=== PATIENT | female | born 1985 | race Caucasian/White ===

== ENCOUNTER 2024-06-24 15:03 | Outpatient (AMB) | payer BC, SELFPAY ==
--- NOTE | 2024-06-24 15:18 | A.OFFVIS_ITS ---
Vital Signs 06/24/24 15:19 Height 5 ft 4 in Weight 147 lb 6 oz BMI 25.3 BP 160/40 H Blood Pressure Location Rt brachial Position Sitting Pulse 104 H Pulse Source Pulse Oximeter Pulse Oximetry (%) 99 Intake Visit Reasons: ENP-Migraine - LVM Intake Note: Patient presents for migraines. Patient gets 3-4 in a month Allergies No Known Allergies Allergy (Verified 06/24/24 15:21) Medication List - Last Reconciled 06/24/24 by MARILY Mayo norethindrone acetate 5 mg PO DAILY sumatriptan succinate mg PO HPI Comments Details: Right-handed 38-yr-old female presents for new pt evaluation of headache disorder. Pt reports she has had migraine since childhood w/o precipitating cause. She saw neurology as a child/adolescent but has not seen neurology since age 15. Over time her migraine has changed- as a child had frontal migraine a/w nausea. However now she has more autonomic s/s a/w her migraine. She wondered if she could now have cluster headache but was not sure. PMH and ROS are notable for:? Musculoskeletal disorders or injury: Back pain- feels she does not sit correctly. Leg cramps- at rest, at night, but also w/ activity if she bends her foot the wrong way, but not w/ walking. CV disease: HTN. Her feet sometimes turns bright red or burn. Her arms and feet are also purple or numb/tingling if sitting or leaning on her arm- has BLE US which was normal. Denies distal extremity or fingers/toes turning white. GI d/o: frequent air bubbling sensation in LUQ- sounds like she is hungry- saw GI, who advised her to try Pepcid- pt has not had f/u yet. Constipation. 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 Family planning: no current plans. Has a 7 yo child. Family history of migraine or other headache disorder: mother had migraine Pertinent denials include: History of concussion/head injury, Mood d/o, Sleep d/o, Respiratory d/o, Clotting or hematology d/o, Endocrine d/o, metabolic d/o, History of seizure, syncope, or drop attacks Lifestyle considerations: Sleep routine: Usual bedtime: 10-12pm and wake-up time: 6-6:45am Sleep difficulties: Endorses: Snoring, Fatigue, Restlessness at times, Leg Cramps. 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 Headache questionnaire:? Previous work-up: Brain MRI w/o, 2023, 2mm Mild right cerebellar tonsillar ectopia. Minor R>L chronic sinusitis. Otherwise, unremarkable exam. Typical headache characteristics: Prodrome symptoms: yawning, fatigue Aura: denies visual auras. Pain intensity: moderate-severe Location, quality, characteristics: Usually one sided either right of left sided more so a constant stabbing pain and a lower level throbbing/pressure pain that comes and goes, which starts frontal/orbital and can move back into the neck, and if headache lasts into second day, the headache and associated s/s will switch to contralateral side. Associated symptoms: ipsilateral eye swelling, palpable temporal vessels, red eye, watery eye, runny nose, photophobia, phonophobia, lightheadedness, fatigue, cognitive difficulties, activity intolerance. Postdrome: Sometimes goes away but when she wakes up, the headache comes back. Triggers: Unknown. Denies exertional triggers. Denies known seasonal/weather triggers- but maybe increased in the fall. Alcohol triggers a different headach e. Time of day: Can wake up with headache between 3-6am. Duration and Frequency: Can last a whole day, but can last 3 days. Can be months without headache or 5-9 migraine attack days per months. How does headache impact your life? has had to miss work. Current acute medication use/interventions: Sumatriptan 25mg- usually helps but not always. Current preventative medication use: None Non-pharmacological interventions: rest, sleep [facility] Medical History (Updated 06/24/24 @ 18:13 by MARILY Mayo) Anemia Migraine Pelvic pain Endometrioma HTN (hypertension) Overweight Surgical History H/O ovarian cystectomy H/O section Family History Mother Lung cancer Father Myocardial infarct Maternal Grandmother No problems noted. Social History Alcohol intake: current Patient Tobacco Use Status: Current everyday Tobacco user Physical Exam Vital Signs: Last Vital Signs Pulse 104 H 06/24/24 15:19 BP 160/40 H 06/24/24 15:19 Pulse Ox 99 06/24/24 15:19 BMI result Body Mass Index 25.3 Const Orientation/consciousness: patient oriented x3 Resp Effort & Inspection: normal respiratory effort and able to speak in complete sen tences Neuro Other: No palpable scalp tenderness. She notes a bump along right vertex of head- slightly raised bump appreciated Mallampati stage IV BLE slightly purplish w/o edema. General: patient oriented x3 Cranial nerves: Yes CN's II-XII intact bilaterally Cognition (Neuro): normal cognition Gait exam (Neuro): Normal gait present Motor exam (neuro): 5/5 motor strength present throughout Deep tendon reflexes (DTR's): Right triceps reflex intensity grade: 2+, Left triceps reflex intensity grade: 2+, Rt Biceps (C5, C6): 2+, Left biceps reflex intensity grade: 2+, Right brachioradialis reflex intensity grade: 2+, Left brachioradialis reflex intensity grade: 2+, Right patellar reflex intensity grade: 2+ and Left patellar reflex intensity grade: 2+ Coordination: [id number] test normal, tandem gait normal and Romberg test negative Pupils: Normal pupillary reactivity/response: bilateral Psych Appearance: grossly normal Mental Status: mental status grossly normal Speech and movement: Normal speech and movement present Affect: normal affect Attitude: cooperative Thought process: Normal thought process present Results Reviewed Results Reviewed: MRI OF BRAIN NO CONTRAST Exam Date: 01/30/2024 6:06 PM Ordering Diagnosis: Migraine without aura and without status migrainosus, not intractable ? MRI OF BRAIN NO CONTRAST ? MRI BRAIN WITHOUT CONTRAST ? HISTORY: Increasing migraines. ? COMPARISON: MRI brain 05/23/2016. ? Technique: MRI of the brain without contrast was performed utilizing the standard departmental protocol. ? FINDINGS: The ventricles and sulci are normal in size and symmetric. ? There is no acute intracranial hemorrhage or acute infarct. ? There is no mass effect or midline shift. ? The basal cisterns are patent. ? There is minor membrane thickening of the maxillary sinuses, right greater than left. There is opacification of a tiny right ethmoid air cell. The paranasal sinuses and mastoid air cells are otherwise clear. ? Pituitary gland is grossly unremarkable. Infundibulum is midline. ? The right cerebellar tonsil extends approximately 2 mm below the foramen magnum. ? IMPRESSION IMPRESSION: Mild right cerebellar tonsillar ectopia. Minor chronic sinusitis. Otherwise, unremarkable exam. ? ? ? Reading Radiologist: Assessment & Plan Assessment & Plan (1) Worsening headaches: Comment: ? secondary headache- posterior fossa or CV process, ? TAC- trigeminal autonomic cephalalgia- ? episodic PH, ? CH. ? migraine w/ autonomic s/s. ? exacerbated by possible sleep apnea Code(s): R51.9 - Headache, unspecified Category: Medical (2) Transient autonomic symptoms: Comment: a/w ipsilateral stabbing headache Code(s): R29.818 - Other symptoms and signs involving the nervous system Category: Medical (3) Snoring: Code(s): R06.83 - Snoring Category: Medical (4) Sleep difficulties: Code(s): G47.9 - Sleep disorder, unspecified Category: Medical (5) Fatigue: Code(s): R53.83 - Other fatigue Category: Medical Plan Pt advised to undergo: Brain MRI w/wo and Brain MRA to assess for secondary etiologies, specifically in posterior fossa region, of unilateral stabbing headaches a/w ipsilateral autonomic s/s/ of puffy/droopy, red, watery eyey, and nasal congestion/runny nose. Labs for common etiologies of headache, cramping, distal discoloration. HST to assess for sleep apnea Pt states will f/u w/ PCP r/t treating elevated BP. For overall headache management: * Optimize good self-care, including but not limited to maintaining a healthy diet, adequate fluid intake, adequate sleep, and engaging in regular physical activity. * Track headaches, especially after any treatment regimen changes. Migraine Thermodynamic Process Control is one of many headache tracking apps. * Specifically asked pt to track timing of stabbing component of ipsilateral headcahe vs time of pressure/throbbing headache to help distinguish between different headache sub-types. For headache prevention medication: Preventative medications should be taken routinely as prescribed for best effect, it may take several weeks for full effect to take effect. Continue OTC Magnesium 400-500mg qhs Start Indomethacin trial upon onset of next unilateral stabbing headache attack. Advised this will help w/ diagnosis as certain HAs are considered absolutely indomethacin responsive. Start 25mg po tid (taken w/ food) x's 1 month. Resume pepcid for GI prophylaxis. Monitor BP/labs. Previous migraine prevention medication trials: Amitriptyline 5-10mg: ineffective and caused drowsiness Migraine prevention medication contraindications: Would avoid Aimovig d/t pt's tendency for distal discoloration. For acute headache treatment: Discussed importance of taking acute medications at the first sign of headache, however stressed importance of avoiding acute medication overuse (especially with combined headache medications). Continue Sumatriptan, however will increase dose to 50-100mg at onset of headache, MR x's 1 (max 200mg per day). Ibuprofen or Excedrin prn- however hold once pt begins Indomethacin trial. Previous acute migraine medication trials: none other Acute migraine medication contraindications: None at this time Pt to follow-up in 2 months or sooner prn. Addendum- pt has been started on Losartan 25mg po qd for BP management. Orders: Orders Vitamin B12 and Folate 07/01/24 R25.2 - Cramp and spasm, R51.9 - Headache, unspecified, R29.818 - Other symptoms and signs involving the nervous system Erythrocyte Sedimentation Rate 07/01/24 R25.2 - Cramp and spasm, R51.9 - Headache, unspecified, R29.818 - Other symptoms and signs involving the nervous system Hemoglobin A1c 07/01/24 R25.2 - Cramp and spasm, R51.9 - Headache, unspecified, R29.818 - Other symptoms and signs involving the nervous system Vitamin D 25-OH (D2 and D3) 07/01/24 R25.2 - Cramp and spasm, R51.9 - Headache, unspecified, R29.818 - Other symptoms and signs involving the nervous system MR head/brain wo/w con 06/24/24 D64.9 - Anemia, unspecified, R51.9 - Headache, unspecified, H57.89 - Other specified disorders of eye and adnexa MR angio head wo con 06/24/24 D64.9 - Anemia, unspecified, R51.9 - Headache, unspecified, H57.89 - Other specified disorders of eye and adnexa Magnesium 07/01/24 R25.2 - Cramp and spasm, R51.9 - Headache, unspecified, R29.818 - Other symptoms and signs involving the nervous system SHAY Reflex Titer and Pattern 07/01/24 R25.2 - Cramp and spasm, R51.9 - Headache, unspecified, R29.818 - Other symptoms and signs involving the nervous system Rheumatoid Factor 07/01/24 R25.2 - Cramp and spasm, R51.9 - Headache, unspecified, R29.818 - Other symptoms and signs involving the nervous system TSH reflex Free T4 07/01/24 R25.2 - Cramp and spasm, R51.9 - Headache, unspecified, R29.818 - Other symptoms and signs involving the nervous system CRP High Sensitivity 07/01/24 R25.2 - Cramp and spasm, R51.9 - Headache, uns pecified, R29.818 - Other symptoms and signs involving the nervous system Complete Blood Count Auto Diff 07/01/24 R25.2 - Cramp and spasm, R51.9 - Headache, unspecified, R29.818 - Other symptoms and signs involving the nervous system Comprehensive Met. Panel 07/01/24 R25.2 - Cramp and spasm, R51.9 - Headache, unspecified, R29.818 - Other symptoms and signs involving the nervous system Ferritin 07/01/24 R25.2 - Cramp and spasm, R51.9 - Headache, unspecified, R29.818 - Other symptoms and signs involving the nervous system IRON PROFILE 07/01/24 R25.2 - Cramp and spasm, R51.9 - Headache, unspecified, R29.818 - Other symptoms and signs involving the nervous system RT home sleep study 06/24/24 R06.83 - Snoring, G47.9 - Sleep disorder, unspecified, R53.83 - Other fatigue Medications: New sumatriptan succinate 50 - 100 mg orally at onset of headache, may repeat in 2 hrs PRN; max 2 tabs per day or 4 tabs/week 12 tabs 6RF migraine headache 30 days indomethacin administer with food or milk 25 mg PO TID 90 caps 1RF 30 days Coding Level of Care Code New Pt Level 4 (97317) Diagnoses Worsening headaches R51.9 Transient autonomic symptoms R29.818 Snoring R06.83 Sleep difficulties G47.9 Fatigue R53.83
[2024-06-24 15:19] VITALS: BP 160/40; PULSE 104; O2SAT 99; BMI 25.3
== END 2024-06-24 16:42 | disposition home or self-care (01) ==
PROVIDERS: PCP Internal Medicine; Visit Provider Nurse Practitioner Family
DX: R51.9 Headache, unspecified (principal); R29.818 Other symptoms and signs involving the nervous system; R06.83 Snoring; G47.9 Sleep disorder, unspecified; R53.83 Other fatigue
CPT/HCPCS: 99204

== ENCOUNTER → 2024-06-24 15:03 | Outpatient (BNVA) | payer BC, SELFPAY | PROVIDERS: PCP Internal Medicine; Visit Provider Nurse Practitioner Family ==

== ENCOUNTER 2024-07-01 11:11 | Outpatient (REF) | payer BC, SELFPAY ==
[2024-07-01 18:02] LABS: MANUAL DIFF FLAG NO
[2024-07-01 18:15] LABS: Basophils Percent Auto 0.2 % (0-2); Eosinophils Percent Auto 0.5 % (0-4); Hematocrit 47.2 % (37.0-47.0); Hemoglobin 16.3 g/dl (12.0-16.0); Imm Gran Abs Auto 0.02 X10*3/uL (0.00-0.03); Imm Gran Pct Auto 0.4 % (0.0-0.4); Lymphocytes Absolute Auto 1.9 X10*3/uL (1.2-4.9); Lymphocytes Percent Auto 34.5 % (20-40); Mean Corpuscular HGB Conc 34.5 g/dl (31.0-35.0); Mean Corpuscular Volume 89.7 fL (80.0-98.0); Mean Platelet Volume 10.7 fL (9.4-12.3); Monocytes Absolute Auto 0.3 X10*3/uL (0.1-1.2); Monocytes Percent Auto 4.7 % (2-11); Neutrophils Absolute Auto 3.3 x10*3/uL (2.0-8.3); Neutrophils Percent Auto 59.7 % (45-73); Platelet Count 236 X10*3/uL (160-400); Red Blood Count 5.26 X10*6/uL (4.20-5.50); Red Cell Distribution Width 12.1 % (11.0-16.0); White Blood Count 5.6 X10*3/uL (4.8-10.8)
[2024-07-01 18:18] LABS: Estimated Average Glucose 91 mg/dL; Hemoglobin A1c % 4.8 % (<6.0)
[2024-07-01 18:34] LABS: Alanine Aminotransferase 14 U/L (0-31); Albumin Level 4.9 g/dL (3.5-5.0); Alkaline Phosphatase 63 U/L (39-117); Anion Gap 14 (12-20); Aspartate Amino Transferase 16 U/L (5-31); Bilirubin Total 1.1 mg/dL (0.0-1.0); Blood Urea Nitrogen 14 mg/dL (9-16); Calcium 9.5 mg/dL (8.4-10.2); Carbon Dioxide 21 mmol/L (22-29); Chloride 106 mmol/L (96-108); Estimated Glomerular Filt Rate > 60; Glucose Random 94 mg/dL (60-115); Iron 132 mcg/dL (30-160); Magnesium 2.3 mg/dL (1.6-2.6); Percent Iron Saturation 40 % (15-50); Potassium 3.8 mmol/L (3.3-5.1); Sodium 137 mmol/L (135-145); Total Iron Binding Capacity 329 mcg/dL (228-428); Total Protein 7.6 g/dL (6.5-8.0); Unsaturated Iron Binding 197 ug/dL
[2024-07-01 18:41] LABS: Rheumatoid Factor < 13.0 IU/mL (<15.0)
[2024-07-01 18:42] LABS: Ferritin 154 ng/mL (10-122); TSH reflex Free T4 4.14 uIU/mL (0.32-4.0)
[2024-07-01 19:06] LABS: Folate 8.6 ng/mL (> or = 4.0); Vitamin B12 244 pg/mL (200-900)
[2024-07-01 19:41] LABS: Erythrocyte Sedimentation Rate 2 MM/HR (0-20)
[2024-07-01 19:46] LABS: Free T4 (Free Thyroxine) 1.01 ng/dL (0.71-1.85)
[2024-07-06 15:07] LABS: Vitamin D 25-OH, D2 <4 ng/mL; Vitamin D 25-OH, D3 22 ng/mL; Vitamin D 25-OH, Total 22 ng/mL (30-100)
[2024-07-07 20:08] LABS: Anti Nuclear Antibody Screen NEGATIVE (NEGATIVE)
== END 2024-07-01 11:12 | disposition home or self-care (01) ==
LOC: HO.HKASLDS 11:11
PROVIDERS: Visit Provider Nurse Practitioner Family
DX: R25.2 Cramp and spasm (principal); R51.9 Headache, unspecified; R29.818 Other symptoms and signs involving the nervous system; Z13.1 Encounter for screening for diabetes mellitus
CPT/HCPCS: 36415; 80053; 82306; 82607; 82728; 82746; 83036; 83540; 83735; 84439; 84443; 85025; 85652; 86038; 86141; 86431

== ENCOUNTER → 2024-08-19 09:01 | Outpatient (REF) | payer BC, SELFPAY | LOC: HO.SL 09:01 | PROVIDERS: PCP Internal Medicine; Visit Provider Nurse Practitioner Family | DX: R06.83 Snoring (principal); G47.9 Sleep disorder, unspecified; R53.83 Other fatigue; G47.10 Hypersomnia, unspecified | CPT/HCPCS: 95806 ==

== ENCOUNTER → 2024-08-19 09:13 | Outpatient (BNV) | payer BC, SELFPAY | PROVIDERS: PCP Internal Medicine; Visit Provider Psychiatry & Neurology Neurology | DX: R06.83 Snoring (principal) | CPT/HCPCS: 95806 ==

== ENCOUNTER 2024-10-17 13:48 | Outpatient (REF) | payer BC, SELFPAY ==
--- NOTE | ~2024-10-17 | MR_ITS ---
EXAMINATION: MR BRAIN WITHOUT AND WITH CONTRAST MR ANGIOGRAPHY BRAIN WITHOUT CONTRAST CLINICAL INFORMATION: Anemia. Headache. COMPARISON: None available. TECHNIQUE: MRI of the brain was obtained using routine sequences without and following the administration of 6.5 mL of Gadavist intravenous contrast. MRI of the brain was obtained using routine sequences without contrast. 3D qwuh-px-kefvoc MR angiography was performed through the brain without the use of intravenous gadolinium. 3D postprocessing including acquisition of multiplanar MIP reformats are obtained at the technologist workstation and utilized for image interpretation. Stenoses are assessed in accordance with NASCET criteria unless otherwise indicated. FINDINGS: Brain MRI: No focal restricted diffusion is demonstrated to suggest acute or subacute cerebral ischemia. No evidence of acute or chronic hemorrhagic products on heme-sensitive imaging. Few nonspecific scattered foci of T2 FLAIR hyperintensity within the bifrontal lobes. No additional parenchymal signal abnormalities. The ventricles are normal in morphology and size. No abnormal mass effect. No midline shift. Normal appearance of the pituitary gland. The cerebellar tonsils are mildly low lying, positioned 0.3 cm below the foramen magnum. The CSF space of the foramen magnum is maintained. Normal arterial and venous vascular flow voids are present. No abnormal contrast enhancement. Normal, homogeneous marrow signal. Mild mucosal thickening of the paranasal sinuses. No signal abnormalities within the mastoids. Head MRA: Normal flow-related signal within the anterior circulation without evidence of focal stenosis or occlusion of the intradural internal carotid, middle cerebral, or anterior cerebral arteries. Normal flow-related signal within the posterior circulation without evidence of focal stenosis or occlusion of the intradural vertebral, basilar, superior cerebellar, or posterior cerebral arteries. No demonstrated intradural aneurysms. MR/MR head/brain wo/w con IMPRESSION: 1. No acute intracranial abnormalities. No abnormal intracranial enhancement. 2. Minimal nonspecific white matter changes. 3. Mild cerebellar tonsillar ectopia. 4. Normal MRA of the head. Electronically signed by: Tony Gonsalez DO 10/25/2024 02:20 PM [facility]
--- NOTE | ~2024-10-17 | MR_ITS ---
EXAMINATION: MR BRAIN WITHOUT AND WITH CONTRAST MR ANGIOGRAPHY BRAIN WITHOUT CONTRAST CLINICAL INFORMATION: Anemia. Headache. COMPARISON: None available. TECHNIQUE: MRI of the brain was obtained using routine sequences without and following the administration of 6.5 mL of Gadavist intravenous contrast. MRI of the brain was obtained using routine sequences without contrast. 3D aatl-nm-ducibl MR angiography was performed through the brain without the use of intravenous gadolinium. 3D postprocessing including acquisition of multiplanar MIP reformats are obtained at the technologist workstation and utilized for image interpretation. Stenoses are assessed in accordance with NASCET criteria unless otherwise indicated. FINDINGS: Brain MRI: No focal restricted diffusion is demonstrated to suggest acute or subacute cerebral ischemia. No evidence of acute or chronic hemorrhagic products on heme-sensitive imaging. Few nonspecific scattered foci of T2 FLAIR hyperintensity within the bifrontal lobes. No additional parenchymal signal abnormalities. The ventricles are normal in morphology and size. No abnormal mass effect. No midline shift. Normal appearance of the pituitary gland. The cerebellar tonsils are mildly low lying, positioned 0.3 cm below the foramen magnum. The CSF space of the foramen magnum is maintained. Normal arterial and venous vascular flow voids are present. No abnormal contrast enhancement. Normal, homogeneous marrow signal. Mild mucosal thickening of the paranasal sinuses. No signal abnormalities within the mastoids. Head MRA: Normal flow-related signal within the anterior circulation without evidence of focal stenosis or occlusion of the intradural internal carotid, middle cerebral, or anterior cerebral arteries. Normal flow-related signal within the posterior circulation without evidence of focal stenosis or occlusion of the intradural vertebral, basilar, superior cerebellar, or posterior cerebral arteries. No demonstrated intradural aneurysms. MR/MR angio head wo con IMPRESSION: 1. No acute intracranial abnormalities. No abnormal intracranial enhancement. 2. Minimal nonspecific white matter changes. 3. Mild cerebellar tonsillar ectopia. 4. Normal MRA of the head. Electronically signed by: Tony Gonsalez DO 10/25/2024 02:20 PM [facility]
[2024-10-17] MEDS: gadobutroL 7.5 ML VIAL IVPUSH (15:06)
--- OUTSIDE RECORDS SUMMARY | 2024-10-21 11:50 | XMS_ITS ---
Author Organization [facility], Address [address] [place] [address] Care Team Providers Care Clay Molder Name Role Phone Audra Ortega [phone] ALLERGIES, ADVERSE REACTIONS, ALERTS None MEDICATIONS Medication Code Code System Start Date Stop Date Route Dosage Directions Fill Instructions control RxNorm Zithromax 589094 RxNorm 024 oral 1 prednisone 19810216 RxNorm 024 oral 1 albuterol sulfate 2258743 RxNorm 024 inhalation 1 BreatheRite MDI Spacer 0 RxNorm 024 miscellaneous 1 PROBLEMS Problem Name Code Code System Start Date End Date Stat us Post COVID-19 condition, unspecified 7132819433 [facility] 11/24/2023 Active Acute bronchospasm 59968009353822 [facility] 11/24/2023 Active Acute bronchitis, unspecified 40537210 [facility] 11/24/2023 Active ENCOUNTERS Encounter Diagnosis Code Code System Date Stat us Post COVID-19 condition, unspecified 8527130660 [facility] 11/24/2023 Active Acute bronchospasm 19612015479896 [facility] 11/24/2023 Ac tive Acute bronchitis, unspecified 90753435 [facility] 024 Active IMMUNIZATIONS * None VITAL SIGNS Code Code System Vitals Name Date Value and Un its 8462-4 [facility] Blood Pressure-Diastolic 11/24/2023 112 mmHg 8480-6 [facility] Blood Pressure-Systolic 11/24/2023 1 59 mmHg 8867-4 [facility] Heart Rate 11/24/2023 93 /min 9279-1 [facility] Respiratory Rate 11/24/2023 14 /min 8310-5 [facility] Body Temperature 11/24/2023 98.1 F 43596-5 [facility] Oxygen Saturation 11/24/2023 94 % SOCIAL HISTORY * None PROCEDURES * None MEDICAL EQUIPMENT * Patient has no history of implantable devices ASSESSMENT * None TREATMENT PLAN Type Description Date MEDICATION Take 90 mcg/actuation HFA Aeroso l Inhaler 11/24/2023 MEDICATION Take 50 mg tablet 11/24/2023 MEDICATION Take 11/24/2023 MEDICATION Take 250 mg tablet 11/24/2023 APPOINTMENT If not feeling demetris r in 3 day(s), please see your primary care physician. If you do not have a primary care physician, please return to this clinic. 11/24/2023 Lab Tests None GOALS * None HEALTH CONCERNS * No Health Concerns FUNCTIONAL AND COGNITIVE STATUS * None CONSULTATION NOTES * None DISCHARGE SUMMARY NOTES * None HISTORY AND PHYSICAL NOTES * None IMAGING NOTES * /Hines History: Muscle pain-Chest: The patient presents with a chief complaint of muscle pain of the chest. It has the following quality: ache. The patient also reports cough as an abnormal symptom related to the complaint.Chest, PA and lateral views:The lungs are clear.No pleural effusion or pneumothorax.Heart size and mediastinal contours are within normal limits. Mild scoliosis.IMPRESSION:No acute cardiopulmonary disease. LABORATORY REPORT NARRATIVE NOTES * None PATHOLOGY REPORT NARRATIVE NOTES * None PROGRESS NOTES * None
== END 2024-10-17 13:49 | disposition home or self-care (01) ==
LOC: HO.MRI 13:48
PROVIDERS: PCP Internal Medicine; Visit Provider Nurse Practitioner Family
DX: D64.9 Anemia, unspecified (principal); R51.9 Headache, unspecified; H57.89 Other specified disorders of eye and adnexa
CPT/HCPCS: 70544; 70553; A9585